=== PATIENT | female | born 1965 | race Caucasian/White ===

== ENCOUNTER → 2017-04-14 | Outpatient (CLI) | payer BC ==
[~2017-04-14] MED LIST: ATE25T PO; ATOR20TA50 PO; DOCU-94 PO; LISI-275 PO; METF-372 PO; PANT40TA2 PO
[2017-04-14 07:38] LABS: Basophils # (auto) 0 uL; Basophils % (auto) 0.5 % (0.0-2.0); CONDITION Y; Eosinophils # (auto) 0.1 uL; Eosinophils % (auto) 2.1 % (0.0-7.0); Hematocrit 32.5 % (36.0-46.0); Hemoglobin 10.7 g/dL (12.2-16.2); Lymphocytes # (auto) 0.7 uL; Lymphocytes % (auto) 15.3 % (10.0-50.0); Mean Corpuscular Hemoglobin 29.2 pg (28.0-32.0); Mean Corpuscular Hgb Conc. 32.9 g/dL (32.0-36.0); Mean Corpuscular Volume 88.7 fL (80.0-100.0); Mean Platelet Volume 9.9 fL (7.4-10.4); Monocytes # (auto) 0.4 uL; Monocytes % (auto) 8.9 % (0.0-12.0); Neutrophils # (auto) 3.4 uL; Neutrophils % (auto) 73.2 % (37.0-80.0); Platelet Count (auto) 216 10^3/uL (140-450); Red Cell Distribution Width 15.2 % (11.6-16.0); White Blood Cell 4.6 10^3/uL (4.4-10.8)
[2017-04-14 08:08] LABS: Bilirubin, Total 0.3 mg/dL (0.2-1.0); Calcium 8.8 mg/dL (8.5-10.1); Potassium 3.7 mmol/L (3.5-5.1); Total Protein 6.5 g/dL (6.4-8.2)
[2017-04-14 08:10] LABS: Temperature: 24.3 C (20.0-25.0)
== END | disposition home or self-care (01) ==
LOC: LAB 06:36
DX: E11.9 Type 2 diabetes mellitus without complications (principal); I10 Essential (primary) hypertension; E78.5 Hyperlipidemia, unspecified
CPT/HCPCS: 36415; 80053; 80061; 82043; 82607; 82746; 83036; 84443; 85025

== ENCOUNTER → 2017-05-24 | Outpatient (CLI) | payer BC | END | disposition home or self-care (01) | LOC: LAB 11:32 | DX: E11.9 Type 2 diabetes mellitus without complications (principal); I10 Essential (primary) hypertension; E66.9 Obesity, unspecified | CPT/HCPCS: 36415; 83036; 84439; 84443 ==

== ENCOUNTER → 2017-07-20 | Outpatient (CLI) | payer BC | END | disposition home or self-care (01) | LOC: LAB 16:31 | PROVIDERS: ATTEND Obstetrics & Gynecology | DX: Z01.419 Encounter for gynecological examination (general) (routine) without abnormal findings (principal); N90.0 Mild vulvar dysplasia | CPT/HCPCS: 36415; 82670; 83001; 83002; 84403; 84443 ==

== ENCOUNTER → 2017-11-22 | Outpatient (CLI) | payer BC ==
[~2017-11-22] MED LIST changes: -ATE25T PO; +ATEN25TA PO
[2017-11-22 07:39] LABS: Basophils # (auto) 0 uL; Basophils % (auto) 0.5 % (0.0-2.0); Eosinophils # (auto) 0.2 uL; Eosinophils % (auto) 2.5 % (0.0-7.0); Hematocrit 39.5 % (36.0-46.0); Hemoglobin 12.8 g/dL (12.2-16.2); Lymphocytes # (auto) 1.3 uL; Lymphocytes % (auto) 16.2 % (10.0-50.0); Mean Corpuscular Hemoglobin 28.1 pg (28.0-32.0); Mean Corpuscular Hgb Conc. 32.4 g/dL (32.0-36.0); Mean Corpuscular Volume 86.8 fL (80.0-100.0); Monocytes # (auto) 0.5 uL; Monocytes % (auto) 6.6 % (0.0-12.0); Neutrophils % (auto) 74.2 % (37.0-80.0); Platelet Count (auto) 221 10^3/uL (140-450); Red Blood Cells 4.56 10^6/uL (4.0-5.20); Red Cell Distribution Width 14.2 % (11.8-14.3); White Blood Cell 8.1 10^3/uL (4.4-10.8)
[2017-11-22 08:30] LABS: Albumin 3.4 g/dL (3.4-5.0); BUN/Creatinine Ratio 30.8; Bilirubin, Total 0.3 mg/dL (0.2-1.0); Calcium 9.2 mg/dL (8.5-10.1); Potassium 4.5 mmol/L (3.5-5.1); Total Protein 7.4 g/dL (6.4-8.2)
== END | disposition home or self-care (01) ==
LOC: LAB 06:33
DX: I10 Essential (primary) hypertension (principal); E08.21 Diabetes mellitus due to underlying condition with diabetic nephropathy
CPT/HCPCS: 36415; 80053; 80061; 83036; 84436; 84443; 85025; 86376

== ENCOUNTER → 2018-02-05 | Outpatient (CLI) | payer BC ==
[2018-02-05 09:49] LABS: Cholesterol 183 mg/dL (< 200); HDL Cholesterol 39 mg/dL (40-59); LDL Cholesterol 103 mg/dL (< 100); Triglycerides 251 mg/dL (< 150)
== END | disposition home or self-care (01) ==
LOC: LAB 07:14
DX: I12.9 Hypertensive chronic kidney disease with stage 1 through stage 4 chronic kidney disease, or unspecified chronic kidney disease (principal); E11.22 Type 2 diabetes mellitus with diabetic chronic kidney disease; N18.3 Chronic kidney disease, stage 3 (moderate); E78.5 Hyperlipidemia, unspecified
CPT/HCPCS: 36415; 80061; 83036; 84443

== ENCOUNTER → 2018-03-26 | Outpatient (CLI) | payer BC ==
[2018-03-26 16:39] LABS: Basophils # (auto) 0.1 uL; Basophils % (auto) 1.1 % (0.0-2.0); Eosinophils # (auto) 0.3 uL; Eosinophils % (auto) 2.5 % (0.0-7.0); Hematocrit 43.6 % (36.0-46.0); Hemoglobin 14.2 g/dL (12.2-16.2); Lymphocytes # (auto) 1.9 uL; Lymphocytes % (auto) 18.7 % (10.0-50.0); Mean Corpuscular Hemoglobin 27.6 pg (28.0-32.0); Mean Corpuscular Hgb Conc. 32.6 g/dL (32.0-36.0); Mean Corpuscular Volume 84.8 fL (80.0-100.0); Monocytes # (auto) 0.6 uL; Monocytes % (auto) 5.7 % (0.0-12.0); Neutrophils # (auto) 7.4 uL; Platelet Count (auto) 266 10^3/uL (140-450); Red Blood Cells 5.15 10^6/uL (4.0-5.20); Red Cell Distribution Width 13.5 % (11.8-14.3); White Blood Cell 10.4 10^3/uL (4.4-10.8)
[2018-03-26 17:08] LABS: Follicle Stimulating Hormone 56.21 IU/L (SEE BELOW); Leuteinizing Hormone 27.7 IU/L
== END | disposition home or self-care (01) ==
LOC: LAB 16:24
PROVIDERS: ATTEND Obstetrics & Gynecology
DX: N95.1 Menopausal and female climacteric states (principal); I12.9 Hypertensive chronic kidney disease with stage 1 through stage 4 chronic kidney disease, or unspecified chronic kidney disease; E11.22 Type 2 diabetes mellitus with diabetic chronic kidney disease; N18.3 Chronic kidney disease, stage 3 (moderate); E78.5 Hyperlipidemia, unspecified
CPT/HCPCS: 36415; 82670; 83001; 83002; 85025